=== PATIENT | female | born 1940 | race Caucasian/White ===

== ENCOUNTER 2018-02-07 08:44 | Day surgery (SDC) | payer MEDICARE ==
[~2018-02-07 08:44] MED LIST: ACETAMINOPHEN 1,000 MG/100 ML BTL IV ONE
[2018-02-07] MEDS ORDERED: FENTANYL PF 100MCG/2ML VIAL IV ONE (08:45)
[2018-02-07] MEDS ORDERED: LIDOCAINE 2% MDV (20MG/ML) 20ML VIAL IV ONE (08:45)
[2018-02-07] MEDS ORDERED: LIDOCAINE 1% MDV (10MG/ML) 20ML VIAL SQ ONE (08:45)
[2018-02-07] MEDS ORDERED: PROPOFOL 10 MG/ML VIAL IV ONE (08:45)
[2018-02-07] MEDS ORDERED: *PACU ONLY* KETAMINE HCL 10 MG/ML (20ML) VIAL IV ONE (08:45)
[2018-02-07] MEDS ORDERED: KETOROLAC 30 MG/ML VIAL IVP ONE (08:45)
--- NOTE | 2018-02-08 09:40 | Operative Note ---
DATE OF SURGERY: 02/07/2018 Surgeon: Paulo Ray DO PREOPERATIVE DIAGNOSIS: Carpal tunnel syndrome of the right wrist. POSTOPERATIVE DIAGNOSIS: Carpal tunnel syndrome of the right wrist. OPERATION: Decompression right median nerve at the wrist using 3.5 loop magnification. DESCRIPTION OF PROCEDURE: This 77-year-old female was taken to the operating room and placed in the supine position on the operating room table. Assisted local anesthesia was performed utilizing 1% Xylocaine plain as a local anesthetic. After sedation, the palm was injected with 1% Xylocaine plain. Subsequently, the right upper extremity, after having been prepped with Hibiclens and draped in the usual sterile fashion, was exsanguinated and the tourniquet inflated to 250 mmHg. Palmar incision was utilized following the hypothenar crease from the level of the base of the webspace of the thumb to the flexor crease of the wrist. Dissection was carried down through the skin and subcutaneous tissue. Hemostasis obtained with the electrocautery. Palmar fascia was divided in line with the skin incision. This was retracted to expose the flexor retinaculum, which was punctured and subsequently split to its proximal margin. With the contents of the carpal tunnel under direct vision, the transverse carpal ligament was transected along its ulnar border and the radial flap was raised to expose the median nerve under the transverse carpal ligament. We immediately identified the recurrent motor branch of the medial nerve and found it to be intact. The median nerve itself also was seen to be intact. Some mild atrophy of the nerve was present. Small blood vessels were present on its ventral surface. These were not disturbed. The wound was irrigated and the tourniquet released and hemostasis obtained with the electrocautery. The wound closed with interrupted 6-0 nylon suture. Sterile dressings were applied with soft tissue dressings and the patient was taken to the recovery room in satisfactory condition. GROSS PATHOLOGY: This patient demonstrated some mild atrophy of the right median nerve, the recurrent motor branch of the median nerve was identified and found to be normal. CC: MD DANIELLE Martinez
[2018-02-11] MEDS ORDERED: MECLIZINE 25 MG TABLET PO ONE (06:00)
[2018-02-11] MEDS ORDERED: ACETAMINOPHEN 1,000 MG/100 ML BTL IV ONE (06:00)
[2018-02-11] MEDS ORDERED: FAMOTIDINE 20MG TABLET PO ONE (06:00)
[2018-02-11] MEDS ORDERED: METOCLOPRAMIDE 10 MG TABLET PO ONE (06:00)
== END 2018-02-07 11:20 | disposition home or self-care (01) ==
LOC: SUR 08:44
PROVIDERS: ATTEND Orthopaedic Surgery
DX: G56.01 Carpal tunnel syndrome, right upper limb (principal); I10 Essential (primary) hypertension; G25.81 Restless legs syndrome; I87.2 Venous insufficiency (chronic) (peripheral)
CPT/HCPCS: 64721; 01810; J1885; J3010